=== PATIENT | male | born 1985 | race Caucasian/White ===

== ENCOUNTER 2017-05-12 07:50 | Emergency (ER) | payer SELFPAY ==
[~2017-05-12] VITALS: Ht 180.3 cm; Wt 70.0 kg
[~2017-05-12 07:50] MED LIST: AUGM875 PO; LACT PO; Z.0.NO CURRENT MEDS
[2017-05-12 08:05] VITALS: BP 101/58; PULSE 88; RESP 18; O2SAT 100
[2017-05-12 08:20] VITALS: BP 118/67; PULSE 63; RESP 18; O2SAT 100
--- NOTE | 2017-05-12 08:20 | PD ---
HPI Chief Complaint: Abdominal Pain Time Seen by Provider: 08:20 Travel History International Travel<30 days: No Contact w/Intl Traveler<30days: No Traveled to known affect area: No History of Present Illness HPI 31-year-old male came to the emergency room with history of left lower quadrant pain that's been going on for past 3 days. Patient says the pain is progressively worsening. No radiation of the pain. He is coming from the correctional facility. He is an inmate. Patient says he's been getting some chills and has been nauseous. No history of diarrhea. Bowel movements are normal so far. No history of hematochezia. He's never had this kind of pain before. Patient has history of renal calculi but says this pain is different than his kidney stones. Vital signs were stable. [facility] Past Medical History Narrative Medical List of his past medical, surgical, social and family history is reviewed from the nursing note. Diminished Hearing: No Past Surgical History Genitourinary Surgery: Yes (KIDNEY STONE REMOVED -RT) Social History Alcohol Use: No Tobacco Use: Yes (5 CIGARS DAILY) Substance Use: Yes (marijauna) Allergies-Medications (Allergen,Severity, Reaction): Coded Allergies: No Known Allergies (Verified Adverse Reaction, Unknown, 05/12/17) Comments No known drug allergies. Reported Meds & Prescriptions Reported Meds & Active Scripts Active Augmentin (Amoxicillin-Clavulanate) 875-125 Mg Tab 1 Tab PO BID 10 Days Flagyl (Metronidazole) 250 Mg Tab 250 Mg PO TID 10 Days Ciprofloxacin (Ciprofloxacin HCl) 500 Mg Tab 500 Mg PO BID 10 Days Narrative Medication List of his home medications reviewed from the nursing note. Review of Systems Except as stated in HPI: all other systems reviewed are Neg Gastrointestinal: Positive: Abdominal Pain Physical Exam Narrative GENERAL: Awake, alert, moderate distress SKIN: Focused skin assessment warm/dry. HEAD: Atraumatic. Normocephalic. EYES: Pupils equal and round. No scleral icterus. No injection or drainage. ENT: No nasal bleeding or discharge. Mucous membranes pink and moist. NECK: Trachea midline. No JVD. CARDIOVASCULAR: Regular rate and rhythm. No murmur appreciated. RESPIRATORY: No accessory muscle use. Clear to auscultation. Breath sounds equal bilaterally. GASTROINTESTINAL: Abdomen soft, tender left lower quadrant with some guarding, nondistended. Hepatic and splenic margins not palpable. MUSCULOSKELETAL: No obvious deformities. No clubbing. No cyanosis. No edema. NEUROLOGICAL: Awake and alert. No obvious cranial nerve deficits. Motor grossly within normal limits. Normal speech. PSYCHIATRIC: Appropriate mood and affect; insight and judgment normal. Data Data Last Documented VS Vital Signs Date Time Temp Pulse Resp B/P (MAP) Pulse Ox O2 Delivery O2 Flow Rate FiO2 05/12/17 17:12 05/12/17 15:12 82 14 100 Room Air Orders Orders Complete Blood Count With Diff (05/12/17 08:32) Comprehensive Metabolic Panel (05/12/17 08:32) Urinalysis - C+S If Indicated (05/12/17 08:32) Iv Access Insert/Monitor (05/12/17 08:32) Ecg Monitoring (05/12/17 08:32) Oximetry (05/12/17 08:32) Morphine Inj (Morphine Inj) (05/12/17 08:45) Ondansetron Inj (Zofran Inj) (05/12/17 08:45) Sodium Chlor 0.9% 1000 Ml Inj (Ns 1000 M (05/12/17 08:32) Sodium Chloride 0.9% Flush (Ns Flush) (05/12/17 08:45) Diet Regular Basic (05/12/17 Lunch) Ct Abd/Pel W Iv Contrast(Rout) (05/12/17 ) Iohexol 350 Inj (Omnipaque 350 Inj) (05/12/17 12:49) Metronidazole 500 Mg Inj (Flagyl 500 Mg (05/12/17 13:30) Ciprofloxacin 400 Mg Premix (Cipro 400 M (05/12/17 13:30) Blood Culture (05/12/17 13:16) Morphine Inj (Morphine Inj) (05/12/17 13:30) Ketorolac Inj (Toradol Inj) (05/12/17 13:30) Ed Discharge Order (05/12/17 14:40) Diphenhydramine Inj (Benadryl Inj) (05/12/17 16:00) Methylprednisolone So Succ Inj (Solumedr (05/12/17 16:00) Labs Laboratory Tests Test 05/12/17 08:53 05/12/17 09:51 05/12/17 10:37 White Blood Count 10.9 TH/MM3 Red Blood Count 4.49 MIL/MM3 Hemoglobin 13.8 GM/DL Hematocrit 40.1 % Mean Corpuscular Volume 89.4 FL Mean Corpuscular Hemoglobin 30.9 PG Mean Corpuscular Hemoglobin Concent 34.5 % Red Cell Distribution Width 12.0 % Platelet Count 192 TH/MM3 Mean Platelet Volume 8.1 FL Neutrophils (%) (Auto) 75.2 % Lymphocytes (%) (Auto) 12.5 % Monocytes (%) (Auto) 10.5 % Eosinophils (%) (Auto) 1.3 % Basophils (%) (Auto) 0.5 % Neutrophils # (Auto) 8.2 TH/MM3 Lymphocytes # (Auto) 1.4 TH/MM3 Monocytes # (Auto) 1.1 TH/MM3 Eosinophils # (Auto) 0.1 TH/MM3 Basophils # (Auto) 0.1 TH/MM3 CBC Comment DIFF FINAL Differential Comment Urine Color YELLOW Urine Turbidity CLEAR Urine pH 8.5 Urine Specific [place] 1.018 Urine Protein TRACE mg/dL Urine Glucose (UA) NEG mg/dL Urine Ketones NEG mg/dL Urine Occult Blood NEG Urine Nitrite NEG Urine Bilirubin NEG Urine Urobilinogen LESS THAN 2.0 MG/DL Urine Leukocyte Esterase NEG Urine RBC LESS THAN 1 /hpf Urine WBC 1 /hpf Urine Mucus FEW /lpf Microscopic Urinalysis Comment CULT NOT INDICATED Blood Urea Nitrogen 11 MG/DL Creatinine 0.92 MG/DL Random Glucose 85 MG/DL Total Protein 6.7 GM/DL Albumin 3.8 GM/DL Calcium Level 8.7 MG/DL Alkaline Phosphatase 44 U/L Aspartate Amino Transf (AST/SGOT) 14 U/L Alanine Aminotransferase (ALT/SGPT) 13 U/L Total Bilirubin 2.1 MG/DL Sodium Level 140 MEQ/L Potassium Level 3.6 MEQ/L Chloride Level 107 MEQ/L Carbon Dioxide Level 24.9 MEQ/L Anion Gap 8 MEQ/L Estimat Glomerular Filtration Rate 95 ML/MIN [facility] Medical Decision Making Medical Screen Exam Complete: Yes Emergency Medical Condition: Yes Medical Record Reviewed: Yes Differential Diagnosis Acute diverticulitis, pyelonephritis, ureteral colic Narrative Course 2:30 PM the test results are back. Bilirubin is slightly elevated. Patient was medicated for pain initially. CAT scan was done and resulted as acute diverticulitis without any abscess. I've given him a dose of ciprofloxacin and Flagyl IV. Patient will be discharged with antibiotic prescription. I have explained to him the diet control with diverticulitis. He needs to follow up with primary care and he understands. I'm comfortable discharging him. He said his pain was coming back and I given him another dose of morphine. 3:59 PM I was just called in the room by the nurse to say that the patient developed intense itching and redness all over his upper extremity and lower extremity after finishing the antibiotic. Patient had received both Flagyl and ciprofloxacin at the same time. I asked the patient and he says that he has received ciprofloxacin in the past but is not sure if he has ever taken Flagyl. I have ordered IV Benadryl and IV Solu-Medrol. Patient's airway seems to be good. I will change the Flagyl prescription and instead start start Augmentin. Procedures EKG Prior to Arrival: No Diagnosis Primary Impression: Acute diverticulitis Additional Impression: Allergic reaction Qualified Codes: T78.40XA - Allergy, unspecified, initial encounter Referrals: Primary Care Physician 2 days Additional Instructions: Take the antibiotic as per the prescription direction. Drink lots of fluids to keep yourself hydrated. Diet modification for diverticulosis/diverticulitis is extremely needed. First 48 hours should be clear liquid diet only. This should be followed by a simple diet without any nuts, seeds whole grains in them. Follow-up with your primary care next couple days. Return to the ER if the condition worsens or any other new concerns like vomiting, fever, worsening pain etc. Med/Other Pt SpecificInfo: Prescription(s) given Scripts Amoxicillin-Clavulanate (Augmentin) 875-125 Mg Tab 1 TAB PO BID for Infection for 10 Days, #20 TAB 0 Refills Prov: Sharon Rodriguez MD 05/12/17 Metronidazole (Flagyl) 250 Mg Tab 250 MG PO TID for Infection for 10 Days, TAB 0 Refills Prov: Sharon Rodriguez MD 05/12/17 Ciprofloxacin (Ciprofloxacin) 500 Mg Tab 500 MG PO BID for Infection for 10 Days, #20 TAB 0 Refills Prov: Sharon Rodriguez MD 05/12/17 Disposition: 01 DISCHARGE HOME Condition: Stable Sharon Rodriguez MD May 12, 2017 08:20
[2017-05-12] MEDS ORDERED: SODIUM CHLOR 0.9% 1000 ML INJ 1,000 ML IV SCH (08:32)
[2017-05-12] MEDS ORDERED: SODIUM CHLORIDE 0.9% FLUSH 10 ML FLUSH IV FLUSH PRN (08:45)
[2017-05-12] MEDS ORDERED: MORPHINE SULFATE 4 MG/ML INJ IV PUSH ONE ×2 (08:45→13:30)
[2017-05-12] MEDS ORDERED: ONDANSETRON HCL 4 MG/2 ML VIAL IVP ONE (08:45)
[2017-05-12 09:21] LABS: AUTOMATED NEUTROPHIL # 8.2 TH/MM3 (1.8-7.7); BASOPHIL # 0.1 TH/MM3 (0-0.2); BASOPHIL % 0.5 % (0.0-2.0); EOSINOPHIL # 0.1 TH/MM3 (0-0.4); EOSINOPHIL % 1.3 % (0.0-4.0); HEMATOCRIT 40.1 % (39.0-51.0); HEMO FLAGS DIFF FINAL; LYMPH % 12.5 % (9.0-44.0); LYMPHOCYTE # 1.4 TH/MM3 (1.0-4.8); MEAN CELL VOLUME 89.4 FL (80.0-100.0); MEAN CORPUSCULAR HEMOGLOBIN 30.9 PG (27.0-34.0); MEAN CORPUSCULAR HGB CONC 34.5 % (32.0-36.0); MONO % 10.5 % (0.0-8.0); NEUT % 75.2 % (16.0-70.0); PLATELET COUNT 192 TH/MM3 (150-450); RED BLOOD COUNT 4.49 MIL/MM3 (4.50-5.90); WHITE BLOOD COUNT 10.9 TH/MM3 (4.0-11.0)
[2017-05-12 10:11] VITALS: PULSE 88; RESP 18; O2SAT 100
[2017-05-12 10:31] LABS: BLOOD, URINE NEG (NEG); COMMENT (UR) CULT NOT INDICATED; CULTURE IF INDICATED CULT NOT INDICATED; GLUCOSE,URINE NEG (NEG); KETONE, URINE NEG (NEG); MUCUS URINE FEW /lpf (OCC); NITRITE,URINE NEG (NEG); PH, URINE 8.5 (5.0-8.5); URINE COLOR YELLOW (YELLW/STRAW)
[2017-05-12 11:47] LABS: ANION GAP 8 MEQ/L (5-15); AST (GOT) 14 U/L (15-37); BICARBONATE 24.9 MEQ/L (21.0-32.0); BLOOD UREA NITROGEN 11 MG/DL (7-18); CHLORIDE 107 MEQ/L (98-107); GLOMERULAR FILTRATION RATE 95 ML/MIN (>89); POTASSIUM 3.6 MEQ/L (3.5-5.1); SODIUM (NA) 140 MEQ/L (136-145)
[2017-05-12 11:48] LABS: ALT (GPT) 13 U/L (12-78)
[2017-05-12 11:51] LABS: ALKALINE PHOSPHATASE 44 U/L (45-117); TOTAL BILIRUBIN ADULT 2.1 MG/DL (0.2-1.0)
[2017-05-12] MEDS ORDERED: IOHEXOL 350 MG/ML 10 ML VIAL (for RAD DIAG) IVCONTRAST ONE (12:49)
--- NOTE | 2017-05-12 12:56 | RADRPT ---
EXAM DATE/TIME: 05/12/2017 12:28 [facility] COMPARISON: No previous studies available for comparison. INDICATIONS : Left lower abdomen pain for one week. IV CONTRAST: 91 cc Omnipaque 350 (iohexol) IV ORAL CONTRAST: No oral contrast ingested. RADIATION DOSE: 6.64 CTDIvol (mGy) MEDICAL HISTORY : Renal calculi. SURGICAL HISTORY : renal stone removed ENCOUNTER: Initial ACUITY: 1 week PAIN SCALE: 7/10 LOCATION: Left lower quadrant TECHNIQUE: Volumetric scanning of the abdomen and pelvis was performed. Using automated exposure control and ad justment of the mA and/or kV according to patient size, radiation dose was kept as low as reasonably achievable to obtain optimal diagnostic quality images. DICOM format image data is available electro nically for review and comparison. FINDINGS: LOWER LUNGS: The visualized lower lungs are clear. LIVER: Homogeneous density without lesion. There is no dilation of the biliary tree. No calcified gallston es. SPLEEN: Normal size without lesion. PANCREAS: Within normal limits. KIDNEYS: Normal in size and shape. There is no mass, stone or hydronephrosis. ADRENAL GLANDS: Within normal limits. VASCULAR: There is no aortic aneurysm. BOWEL/MESENTERY: There is inflammatory changes adjacent to the sigmoid colon suggestive of diverticulitis. There are s cattered diverticula throughout the descending and sigmoid colon. No free fluid or loculated fluid co llections are demonstrated. The bowel gas pattern is within normal limits. There is stool throughout the colon. No evidence of free air. The appendix is unremarkable. ABDOMINAL WALL: Within normal limits. RETROPERITONEUM: There is no lymphadenopathy. BLADDER: No wall thickening or mass. REPRODUCTIVE: Within normal limits. INGUINAL: There is no lymphadenopathy or hernia. MUSCULOSKELETAL: Within normal limits for patient age. CONCLUSION: 1. Inflammatory changes adjacent to the sigmoid colon characteristic of diverticulitis. 2. No free fluid or loculated fluid collections are demonstrated. Gilbert Burgos MD on May 12, 2017 at 12:52 Board Certified Radiologist. This report was verified electronically.
[2017-05-12] MEDS ORDERED: metroNIDAZOLE 500 MG INJ 100 ML IV ONE (13:30)
[2017-05-12] MEDS ORDERED: CIPROFLOXACIN 400 MG PREMIX 200 ML IV ONE (13:30)
[2017-05-12] MEDS ORDERED: KETOROLAC TROMETHAMINE 30 MG/ML (IVP) VIAL IV PUSH ONE (13:30)
[2017-05-12] MEDS ORDERED: METR250 PO (14:43)
[2017-05-12] MEDS ORDERED: CIPR500T2 PO (14:43)
[2017-05-12 15:12] VITALS: BP 128/60; PULSE 82; RESP 14; O2SAT 100
[2017-05-12] MEDS ORDERED: methylPREDNISolone SOD SUCC 125 MG/2 ML VIAL IV PUSH ONE (16:00)
[2017-05-12] MEDS ORDERED: diphenhydrAMINE HCL 50 MG/ML VIAL IV PUSH ONE (16:00)
[2017-05-12] MEDS ORDERED: AUGM875T3 PO (16:01)
== END 2017-05-12 17:13 | disposition home or self-care (01) ==
LOC: NEPC 07:50
DX: K57.92 Diverticulitis of intestine, part unspecified, without perforation or abscess without bleeding (principal); T78.40XA Allergy, unspecified, initial encounter; F17.290 Nicotine dependence, other tobacco product, uncomplicated
CPT/HCPCS: 74177; 80053; 81001; 85025; 87040; 96374; 96375; 96376; 99285; J0744; J1200; J1885; J2270; J2405; J2930; J7030; Q9967

== ENCOUNTER 2017-08-12 11:47 | Emergency (ER) | payer SELFPAY ==
[~2017-08-12] VITALS: Ht 180.3 cm; Wt 66.0 kg
[~2017-08-12 11:47] MED LIST changes: -AUGM875 PO; +AUGM875T3 PO; +CIPR500T2 PO; -LACT PO; +METR250 PO; -Z.0.NO CURRENT MEDS
[2017-08-12 11:50] VITALS: BP 120/70; PULSE 102; RESP 18; TEMP 98.3; O2SAT 97
[2017-08-12] MEDS ORDERED: SILVER SULFADIAZINE 1% CR 50 GM JAR TOPICAL ONE (12:15)
[2017-08-12] MEDS ORDERED: IBUPROFEN 800 MG TAB PO ONE (12:15)
[2017-08-12] MEDS ORDERED: ACETAMINOPHEN/HYDROcodone 325 MG/5 MG TAB PO ONE (12:15)
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
[2017-08-12] MEDS ORDERED: SILV1CRE20 TOPICAL (12:21)
[2017-08-12] MEDS ORDERED: DICL75TA PO (12:21)
== END 2017-08-12 12:44 | disposition home or self-care (01) ==
LOC: PHEFT 11:47
DX: T23.001A Burn of unspecified degree of right hand, unspecified site, initial encounter (principal); T23.002A Burn of unspecified degree of left hand, unspecified site, initial encounter; X00.8XXA Other exposure to uncontrolled fire in building or structure, initial encounter; F17.290 Nicotine dependence, other tobacco product, uncomplicated
CPT/HCPCS: 99283

== ENCOUNTER 2017-09-17 02:10 | Emergency (ER) | payer SELFPAY ==
[~2017-09-17 02:10] MED LIST changes: -AUGM875T3 PO; -CIPR500T2 PO; +DICL75TA PO; -METR250 PO; +SILV1CRE20 TOPICAL
[2017-09-17] MEDS ORDERED: IBUP1TAB7 PO (15:22)
[2017-09-17] MEDS ORDERED: AUGM875T3 PO (15:22)
== END 2017-09-17 02:39 | disposition left against medical advice (07) ==
LOC: NED 02:10
DX: Z53.21 Procedure and treatment not carried out due to patient leaving prior to being seen by health care provider (principal)
CPT/HCPCS: 99281

== ENCOUNTER 2017-09-17 13:30 | Emergency (ER) | payer SELFPAY ==
[~2017-09-17] VITALS: Ht 180.3 cm; Wt 64.0 kg
[2017-09-17 13:47] VITALS: BP 108/79; PULSE 112; RESP 16; TEMP 98.9; O2SAT 99
[2017-09-17] MEDS ORDERED: ACETAMINOPHEN/HYDROcodone 325 MG/5 MG TAB PO ONE (14:00)
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
[2017-09-17] MEDS ORDERED: LIDOCAINE HCL 1% 20 ML VIAL ONE (14:37)
[2017-09-17] MEDS ORDERED: LIDOCAINE HCL 1% 30 ML VIAL INFIL ONE (14:45)
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
[2017-09-17] MEDS ORDERED: ONDANSETRON ODT 4 MG TAB ONE (15:10)
[2017-09-17] MEDS ORDERED: IBUP1TAB7 PO (15:22)
[2017-09-17] MEDS ORDERED: AUGM875T3 PO (15:22)
[2017-09-17] MEDS ORDERED: IBUPROFEN 800 MG TAB PO ONE (15:30)
[2017-09-17] MEDS ORDERED: AMOXICILLIN/CLAVULANATE K 875 MG TAB PO ONE (15:30)
== END 2017-09-17 15:58 | disposition home or self-care (01) ==
LOC: PHEFT 13:30
DX: S61.421A Laceration with foreign body of right hand, initial encounter (principal); W22.09XA Striking against other stationary object, initial encounter
CPT/HCPCS: 73130; 99283